=== PATIENT | male | born 1985 | race Caucasian/White ===

== ENCOUNTER 2017-11-18 19:46 | Emergency (ER) | payer SELFPAY ==
[~2017-11-18] VITALS: Ht 167.6 cm; Wt 80.1 kg
[2017-11-18 20:27] VITALS: BP 164/72; PULSE 100; RESP 18; TEMP 98.2; O2SAT 98
--- NOTE | 2017-11-18 21:10 | PD ---
HPI Chief Complaint: Musculoskeletal Complaint Time Seen by Provider: 20:53 Travel History International Travel<30 days: No Contact w/Intl Traveler<30days: No Traveled to known affect area: No History of Present Illness HPI The patient is a 32-year-old male that fell off a roof at 11 AM yesterday. He complains of left lateral knee and leg pain. He states he has difficulty walking. He denies any other injury. He denies any loss of consciousness. Specifically, he denies any C-spine, T-spine or LS-spine discomfort. [facility] Past Medical History Medical History: Denies Significant Hx Diminished Hearing: No Tetanus Vaccination: < 5 Years Influenza Vaccination: No ?: Not Past Surgical History Surgical History: No Previous Surgery Social History Alcohol Use: Yes (social ) Tobacco Use: Yes (1/2 pack daily) Substance Use: No Allergies-Medications (Allergen,Severity, Reaction): Coded Allergies: No Known Allergies (Unverified , 11/18/17) Reported Meds & Prescriptions Reported Meds & Active Scripts Active No Active Prescriptions or Reported Medications Review of Systems Except as stated in HPI: all other systems reviewed are Neg Physical Exam Narrative GENERAL: The patient is alert, oriented 3 and slight apparent distress with his left knee/leg discomfort. His vital signs show blood pressure 164/72 with heart rate of 100 but otherwise are normal. SKIN: Focused skin assessment warm/dry. HEAD: Atraumatic. Normocephalic. EYES: Pupils equal and round. No scleral icterus. No injection or drainage. ENT: No nasal bleeding or discharge. Mucous membranes pink and moist. NECK: Trachea midline. No JVD. CARDIOVASCULAR: Regular rate and rhythm. No murmur appreciated. RESPIRATORY: No accessory muscle use. Clear to auscultation. Breath sounds equal bilaterally. GASTROINTESTINAL: Abdomen soft, non-tender, nondistended. Hepatic and splenic margins not palpable. MUSCULOSKELETAL: No obvious deformities. No clubbing. No cyanosis. No edema. There is no deformity of the knee or leg and no obvious swelling is present in this area but there is tenderness over the proximal fibular area as well as lateral knee. Rocio, drawer, collaterals all show intact ligaments on testing. NEUROLOGICAL: Awake and alert. No obvious cranial nerve deficits. Motor grossly within normal limits. Normal speech. PSYCHIATRIC: Appropriate mood and affect; insight and judgment normal. Data Data Last Documented VS Vital Signs Date Time Temp Pulse Resp B/P (MAP) Pulse Ox O2 Delivery O2 Flow Rate FiO2 11/18/17 20:27 98.2 100 18 164/72 (102) 98 Orders Orders Knee, Complete (4vws) (11/18/17 21:10) Tibia/Fibula (Ap/Lat) (11/18/17 21:10) MDM Medical Decision Making Medical Screen Exam Complete: Yes Emergency Medical Condition: Yes Medical Record Reviewed: Yes Interpretation(s) X-rays of the left tibia-fibula and knee are normal. Differential Diagnosis Contusion knee, strain knee, contusion fibula, fractured fibula, fracture knee Narrative Course The patient has a contusion of the left knee and lower leg. Plan: The patient should rest that he states he is going to work anyway. He is given Motrin 800 mg 3 times daily. Diagnosis Primary Impression: Contusion of left knee Additional Impression: Contusion of left lower leg Additional Instructions: Rest the knee and leg is much as possible. Apparently, the patient left this in is he was told he does not have a fracture. He did not want any prescription for Motrin. Med/Other Pt SpecificInfo: Prescription(s) given Scripts No Active Prescriptions or Reported Meds Disposition: 01 DISCHARGE HOME Condition: Stable Diogenes Boyd MD Nov 18, 2017 21:10
[2017-11-18 21:45] VITALS: BP 155/70; PULSE 95; RESP 18; O2SAT 98
--- NOTE | 2017-11-18 23:06 | RADRPT ---
EXAM DATE/TIME: 11/18/2017 21:36 [facility] COMPARISON: No previous studies available for comparison. INDICATIONS : Fall off of roof this afternoon. MEDICAL HISTORY : None. SURGICAL HISTORY : None. ENCOUNTER: Initial ACUITY: 1 day PAIN SCORE: 10/10 LOCATION: Left Lateral side FINDINGS: Four view examination of the left knee demonstrates no evidence of fracture or dislocation. Bony min eralization is normal. The articular surfaces are intact. The suprapatellar soft tissues have a nor mal configuration. CONCLUSION: No acute disease. Alfred Augustin MD on November 18, 2017 at 23:04 Board Certified Radiologist. This report was verified electronically.
--- NOTE | 2017-11-18 23:07 | RADRPT ---
EXAM DATE/TIME: 11/18/2017 21:36 [facility] COMPARISON: No previous studies available for comparison. INDICATIONS : Fall off of roof this afternoon. MEDICAL HISTORY : None. SURGICAL HISTORY : None. ENCOUNTER: Initial ACUITY: 1 day PAIN SCORE: 10/10 LOCATION: Left Lateral side FINDINGS: Two view examination of the left tibia demonstrates no evidence of fracture or dislocation. Bony min eralization is normal. The soft tissue structures are intact. CONCLUSION: No acute disease. Alfred Augustin MD on November 18, 2017 at 23:04 Board Certified Radiologist. This report was verified electronically.
== END 2017-11-18 23:31 | disposition home or self-care (01) ==
LOC: PHED 19:46
DX: S80.02XA Contusion of left knee, initial encounter (principal); S80.12XA Contusion of left lower leg, initial encounter; W13.2XXA Fall from, out of or through roof, initial encounter; F17.210 Nicotine dependence, cigarettes, uncomplicated
CPT/HCPCS: 73564; 73590; 99283